=== PATIENT | female | born 1950 | race Caucasian/White ===

== ENCOUNTER → 2016-11-15 | Outpatient (CLI) | payer OTHER, MEDICARE ==
[~2016-11-15] MED LIST: LIDOCAINE 1% MDV 20ML VIAL As Ordered ONE
--- NOTE | 2016-11-15 11:52 | REP ---
POST BIOPSY MAMMOGRAM RIGHT BREAST: Post biopsy mammogram right breast performed in the MLO, ML and CC projections. Metallic marking clip is seen at the anterior margin of the suspicious nodule seen on the prior mammogram from [facility] dated 02/27/2016. Signed by Hans Cope MD 11/15/2016 05:41 P
--- NOTE | 2016-11-18 10:37 | REP ---
RIGHT BREAST STEREOTACTIC BIOPSY: The procedure was performed by WENDY Russell under the direct supervision of Dr. Cope. The procedure along with its risks, benefits and complications were discussed with the patient prior to the examination. Informed consent was obtained both verbally and written. Following universal protocol, patient and site verification were performed with a time-out prior to the procedure. After obtaining informed consent, the patient was positioned on the stereotactic chair and the target was localized with mammographic imaging. A lateral medial approach was used. The skin was cleanse with ChloraPrep. Cutaneous and deeper subcutaneous anesthesia was achieved using 1% Xylocaine. A small incision was made. The Mammotome biopsy device was inserted and accuracy of position was confirmed with pre-fire imaging. A total of six core biopsy specimen were obtained. The specimen were placed in formalin and sent to the lab for further evaluation. Results pending. A marker clip was placed at the biopsy site. Following the procedure, the wound was cleansed and compressed. Steri-Stripes and sterile gauze were applied and the patient was given postbiopsy instructions. The patient tolerated the procedure well and had no immediate complications. IMPRESSION: Uncomplicated right breast biopsy. Reviewed by WENDY Ricci 11/18/2016 11:10 AEdited and Signed by Hans Cope MD 11/18/2016 08:00 P
== END ==
LOC: M RADPRO 09:04
PROVIDERS: ATTEND Nurse Practitioner Adult Health
DX: C50.919 Malignant neoplasm of unspecified site of unspecified female breast (principal); Z79.899 Other long term (current) drug therapy

== ENCOUNTER → 2017-01-04 | Outpatient (CLI) | payer MEDICARE, BC ==
--- NOTE | 2017-01-07 08:01 | RADONC ---
RADIATION ONCOLOGY CONSULTATION REPORT DATE: 01/04/2017 CHART NUMBER: [id number] DIAGNOSIS: Right breast cancer. STAGE: Stage I A, [id number]. ECOG PERFORMANCE STATUS: 0. CONSULTATION NOTE: Ms. 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 The patient was in her usual state of health until 10/11/2016 when she underwent a breast MRI which showed a suspicious area in her right breast. On 12/08/2016, the patient underwent lumpectomy and sentinel lymph node biopsy. Pathology revealed a 0.2 cm well-differentiated infiltrating ductal carcinoma of the right breast. The margins of resection were negative for malignancy. Angiolymphatic invasion was not seen. The tumor was noted from previous biopsy to be estrogen receptor and progesterone receptor positive and HER2 negative. One sentinel lymph node was sampled and was negative for malignancy. The patient has done well since surgery and is now presenting for postoperative radiation therapy for conservative breast management. PAST MEDICAL HISTORY: The patient's past medical history is noncontributory. She has been in generally good health. ALLERGIES: The patient has no known drug allergies. SOCIAL HISTORY: The patient does not smoke cigarettes nor abuse alcohol. FAMILY HISTORY: The patient's family history is positive for a mother with breast cancer and a brother with head and neck cancer. REVIEW OF SYSTEMS: The patient's review of systems is noncontributory. Denies nausea, vomiting, fevers, chills, night sweats, diplopia, headaches, anxiety or depression, anorexia, weight loss, visual disturbances, chest pain, urinary or bowel difficulties, bone pain, or neurological problems. PHYSICAL EXAMINATION: The patient is a well-developed, well-nourished, 66-year-old female in no acute distress. HEENT exam is normocephalic, atraumatic. Extraocular movements are intact. There is no palpable cervical, supraclavicular, infraclavicular, axillary, or inguinal lymphadenopathy present. Lungs are clear to auscultation and percussion. Heart has a regular rate and rhythm. Abdomen is benign with no hepatosplenomegaly, masses, or tenderness. Breast examination reveals no masses or discharge bilaterally. Skeletal examination reveals no tenderness to pressure or percussion of the bony skeleton. Extremities reveal no clubbing, cyanosis, or edema. Neurologic exam is grossly intact, as is the remainder of the physical examination. ASSESSMENT: Clearly, the patient is a candidate for external beam radiation therapy and I have so informed her. I have discussed with the patient in detail the potential benefits as well as possible acute and chronic sequelae of external beam radiation therapy. We have discussed logistics of treatment planning, simulation and subsequent fractionated daily radiation treatments. I have scheduled the patient for the next available simulation slot and radiation treatments will begin subsequently. Thank you for allowing us to participate in the care of this very pleasant woman. If I could be of any further assistance or provide you with any information, please feel free to contact me at anytime. As always warm regards. cc: MD Sayra Dietz, ANP
== END ==
LOC: M ONCR 09:09
PROVIDERS: ATTEND Radiology Radiation Oncology
DX: C50.911 Malignant neoplasm of unspecified site of right female breast (principal)

== ENCOUNTER 2017-01-06 14:44 | Outpatient (RCR) | payer MEDICARE, BC ==
--- NOTE | 2017-01-07 09:58 | RADONC ---
RADIATION ONCOLOGY SIMULATION NOTE DATE: 01/06/2017 CHART NUMBER: [id number] Ms. Desai was taken to the CT scan for CT simulation of her right breast field. CT was accomplished without difficulty or discomfort. Radiation treatment planning is underway and radiation treatments will begin subsequently. An immobilization device was created and will be used throughout the course of treatment. I was physically present throughout the course of CT simulation.
== END 2017-01-20 ==
LOC: M ONCR 14:44
PROVIDERS: ATTEND Radiology Radiation Oncology
DX: C50.411 Malignant neoplasm of upper-outer quadrant of right female breast (principal)

== ENCOUNTER → 2017-01-06 | Outpatient (CLI) | payer MEDICARE, BC ==
[2017-01-06 15:21] LABS: MEAN CORPUSCULAR HEMOGLOBIN 29.1 pg (27.0-33.0); MEAN CORPUSCULAR HGB CONC 32.2 g/dl (32.0-36.5); MEAN CORPUSCULAR VOLUME 90.3 fl (80.0-96.0); PLATELET COUNT, AUTOMATED 263 10^3/uL (150-450); RED CELL DISTRIBUTION WIDTH 13.1 % (11.5-14.5); WHITE BLOOD COUNT 7.3 10^3/uL (4.0-10.0)
== END ==
LOC: M RAD 13:37
PROVIDERS: ATTEND Radiology Radiation Oncology
DX: C50.919 Malignant neoplasm of unspecified site of unspecified female breast (principal); L23.1 Allergic contact dermatitis due to adhesives; Z91.040 Latex allergy status

== ENCOUNTER 2017-01-21 14:26 | Outpatient (RCR) | payer MEDICARE, BC | END 2017-02-20 | LOC: M ONCR 14:26 | DX: C50.411 Malignant neoplasm of upper-outer quadrant of right female breast (principal) | CPT/HCPCS: 77300 ==

== ENCOUNTER → 2017-03-23 | Outpatient (CLI) | payer MEDICARE, BC | LOC: M ONCR 09:35 | DX: C50.411 Malignant neoplasm of upper-outer quadrant of right female breast (principal) | CPT/HCPCS: G0463 ==

== ENCOUNTER → 2017-09-21 | Outpatient (CLI) | payer MEDICARE, BC | LOC: M ONCR 08:44 | DX: C50.411 Malignant neoplasm of upper-outer quadrant of right female breast (principal) | CPT/HCPCS: G0463 ==

== ENCOUNTER → 2018-03-08 | Outpatient (CLI) | payer MEDICARE, BC ==
--- NOTE | 2018-03-09 11:13 | RADONC ---
RADIATION ONCOLOGY FOLLOWUP NOTE DATE: 03/08/2018 CHART NUMBER: [id number] DIAGNOSIS: Right breast cancer. STAGE: Stage I A, [id number]. ECOG PERFORMANCE STATUS: 0. FOLLOWUP NOTE: Ms. Desai is a very pleasant 67-year-old white female with the diagnosis of a stage I A, [id number] well-differentiated infiltrating ductal carcinoma of the right breast who is presenting to us today for routine followup visit 1 year and 1 month post completion of external beam radiation therapy. The patient presents today reporting that she is doing quite well with no complaints at this time related to her radiation therapy or disease. She has no breast or bone pain. The patient's review of systems is noncontributory. Denies nausea, vomiting, fevers, chills, night sweats, diplopia, headaches, anxiety or depression, anorexia, weight loss, visual disturbances, chest pain, urinary or bowel difficulties, bone pain, or neurological problems. PHYSICAL EXAMINATION: The patient is a well-developed, well-nourished woman in no acute distress. HEENT exam is normocephalic, atraumatic. Extraocular movements are intact. There is no palpable cervical, supraclavicular, infraclavicular, axillary, or inguinal lymphadenopathy present. Lungs are clear to auscultation and percussion. Heart has a regular rate and rhythm. Abdomen is benign with no hepatosplenomegaly, masses, or tenderness. Breast examination reveals no masses or discharge bilaterally. Skeletal examination reveals no tenderness to pressure or percussion of the bony skeleton. Extremities reveal no clubbing, cyanosis, or edema. Neurologic exam is grossly intact, as is the remainder of the physical examination. ASSESSMENT The patient is clinically GABRIELA at this time and will be seen by us again in 6 months for further followup. She will also continue to be followed by her other physicians as well. cc: MD Tara Ordoñez MD Nancy Spicer, ANP
== END ==
LOC: M ONCR 11:04
PROVIDERS: ATTEND Radiology Radiation Oncology
DX: Z85.3 Personal history of malignant neoplasm of breast (principal)

== ENCOUNTER → 2018-08-23 | Outpatient (CLI) | payer MEDICARE, BC ==
--- NOTE | 2018-08-24 10:21 | RADONC ---
RADIATION ONCOLOGY FOLLOWUP NOTE DATE: 08/23/2018. CHART NUMBER: [id number] DIAGNOSIS: Right breast cancer. STAGE: IA, [id number]. ECOG PERFORMANCE STATUS: 0. FOLLOWUP NOTE: Mrs. Desai is a 67-year-old white female who has a diagnosis of a stage IA, [id number], well differentiated infiltrating ductal carcinoma involving the right breast. She presents today for a followup visit after having completed a course of adjuvant radiotherapy on February 18, 2017. She has been doing quite well and denies any issues referable to her disease or to her treatments. REVIEW OF SYSTEMS: She specifically denies any nausea, vomiting, coughing, sputum production or hemoptysis. Her energy level is excellent and she is able to maintain most of her day-to-day activities without any alteration of her lifestyle. She also denies nausea, vomiting, fevers, chills, night sweats, diplopia, headache, anxiety, depression, anorexia, weight loss, visual disturbances, chest pain, urinary or bowel difficulties, bone pain or neurologic problems. PHYSICAL EXAMINATION: Reveals a well-nourished, well-developed female in no acute distress. Lymphatics: No palpable peripheral lymphadenopathy is appreciated. Heart: Regular without murmurs. Lungs: Clear to auscultation and percussion. Abdomen: Without evidence of hepatomegaly, masses, deep abdominal tenderness. Extremities: Without cyanosis, clubbing or edema. Neurologic: Examination grossly physiologic and nonfocal. Breast examination: Reveals breasts are bilaterally symmetric. No dominant masses are palpable in either breast. The patient does have fibrotic feeling breasts in general. IMPRESSION: Clinically GABRIELA. The patient has recently undergone a MRI scan which she reports was essentially negative because she was worried about nipple inversion involving the right breast. Mammogram was also negative. The patient is clinically GABRIELA now and we would like to see her again in approximately 6 months or as needed. She was encouraged to return to her referring physicians as per their directions and instructions. cc: MD Tara Ordoñez MD Nancy Spicer, ANP
== END ==
LOC: M ONCR 09:51
PROVIDERS: ATTEND Radiology Radiation Oncology
DX: Z92.3 Personal history of irradiation (principal); Z85.3 Personal history of malignant neoplasm of breast

== ENCOUNTER → 2019-01-31 | Outpatient (CLI) | payer MEDICARE, BC ==
--- NOTE | 2019-01-31 14:06 | RADONC ---
RADIATION ONCOLOGY FOLLOWUP NOTE DATE OF SERVICE: 01/31/2019 CHART NUMBER: [id number] DIAGNOSIS: Right breast cancer. STAGE: Stage I A, [id number]. ECOG PERFORMANCE STATUS: 0. FOLLOWUP NOTE: Ms. Lazar is a very pleasant 67-year-old white female with the diagnosis of a stage I A, [id number] well-differentiated infiltrating ductal carcinoma of the right breast who is presenting to us today for routine followup visit 2 years post completion of external beam radiation therapy. The patient presents today reporting that she is doing quite well with no complaints at this time related to her radiation therapy or disease. She has no breast bone pain. The patient's review of systems is noncontributory. Denies nausea, vomiting, fevers, chills, night sweats, diplopia, headaches, anxiety or depression, anorexia, weight loss, visual disturbances, chest pain, urinary or bowel difficulties, bone pain, or neurological problems. PHYSICAL EXAMINATION: The patient is a well-developed, well-nourished female in no acute distress. HEENT exam is normocephalic, atraumatic. Extraocular movements are intact. There is no palpable cervical, supraclavicular, infraclavicular, axillary, or inguinal lymphadenopathy present. Lungs are clear to auscultation and percussion. Heart has a regular rate and rhythm. Abdomen is benign with no hepatosplenomegaly, masses, or tenderness. Breast examination reveals no masses or discharge bilaterally. Skeletal examination reveals no tenderness to pressure or percussion of the bony skeleton. Extremities reveal no clubbing, cyanosis, or edema. Neurologic exam is grossly intact, as is the remainder of the physical examination. ASSESSMENT: The patient is clinically GABRIELA at this time. She is being followed and managed closely by her other physicians, Kulwinder James MD, Tara Moralez MD. In light of her close followup with these physicians, I am discharging her from my followup except on a p.r.n. basis. cc: MD Tara Ordoñez MD Nancy Spicer, ANP
== END ==
LOC: M ONCR 10:08
PROVIDERS: ATTEND Radiology Radiation Oncology
DX: Z85.3 Personal history of malignant neoplasm of breast (principal); Z92.3 Personal history of irradiation